=== PATIENT | male | born 1995 | race Caucasian/White ===

== ENCOUNTER 2023-12-26 23:27 | Observation (INO) ==
[2023-12-27 01:06] LABS: Albumin Globulin Ratio 1.5 (0.9-2); Albumin Level 4.5 gm/dl (3.4-5.0); BUN Creatinine Ratio 11.4 (10-20); Bilirubin,Total 0.6 mg/dl (0.2-1.0); Creatinine Clr Calc Pharmacy 66.8 ml/min; Est GFR (African American) 64.5 ml/min; Est GFR (Non-African American) 55.6 ml/min; Globulin 3.1 gm/dl (2.5-4.0); Potassium 4.1 mmol/L (3.5-5.1); Total Protein 7.6 gm/dl (6.0-8.3)
[2023-12-27 01:07] LABS: Basophils # (auto) 0.04 K/uL (0.00-0.20); Basophils % (auto) 0.2 %; Eosinophils # (auto) 0.01 K/uL (0.00-0.50); Eosinophils % (auto) 0.1 %; Hematocrit (blood only) 42.2 % (42.0-52.0); Hemoglobin 13.7 g/dl (14.0-18.0); Immature Granulocytes # (auto) 0.16 K/uL (0.01-0.20); Immature Granulocytes % (auto) 0.8 %; Lymphocytes # (auto) 1.51 K/uL (1.20-3.40); Mean Corpuscular Hemoglobin 26.9 pg (25.0-34.0); Mean Corpuscular Hgb Conc 32.5 g/dL (32.0-36.0); Mean Corpuscular Volume 82.9 fL (80.0-100.0); Mean Platelet Volume 10.9 fL (9.4-12.4); Monocytes # (auto) 1.77 K/uL (0.11-0.59); Monocytes % (auto) 9.4 %; Neutrophils # (auto) 15.41 K/uL (1.40-6.50); Neutrophils % (auto) 81.5 %; Platelet Count 354 K/uL (130-400); RDW Coefficient of Variation 13.6 % (11.5-14.5); RDW Standard Deviation 41.2 fL (36.4-46.3); Red Blood Count 5.09 M/uL (4.70-6.10)
[2023-12-27] MEDS: OPTIRAY 320 100ml IV ONE (01:47)
--- NOTE | 2023-12-27 03:14 | CT Scan Report ---
Exam(s): CT ABDOMEN + PELVIS With Contrast IV Amt: 94 ml opti 320 EXAM: CT Abdomen and Pelvis With Intravenous Contrast CLINICAL HISTORY: Reason for exam: Larisa-rectal infection w/ packing. 18k wbc. TECHNIQUE: Axial computed tomography images of the abdomen and pelvis with intravenous contrast. CTDI is 17.76 mGy and DLP is 892 mGy-cm. Automated exposure control was utilized for the study. A dose lowering technique was utilized adhering to the principles of ALARA. CONTRAST: Patient received 94 ml opti 320 of IV contrast COMPARISON: No relevant prior studies available. FINDINGS: Lung bases: Unremarkable. No mass. No consolidation. ABDOMEN: Liver: Normal size. 2.3 x 2.2 cm intermediate density hypodense lesion left lobe of liver. 6 mm hypodense lesion right lobe of liver and 7 mm hypodense lesion in the left lobe of liver, too small to characterize. Gallbladder and bile ducts: Unremarkable. No calcified stones. No ductal dilation. Pancreas: Unremarkable. No mass. No ductal dilation. Spleen: Unremarkable. No splenomegaly. Adrenals: Unremarkable. No mass. Kidneys and ureters: No obstructive uropathy. No obstructing renal or ureteral calculi. No hydronephrosis or hydroureter. Stomach and bowel: No obstruction or ileus. Moderate stool throughout the colon. No evidence for diverticulitis. PELVIS: Appendix: No findings to suggest acute appendicitis. Bladder: Partially contracted. No mass. Reproductive: Unremarkable as visualized. ABDOMEN and PELVIS: Intraperitoneal space: No free air. No free fluid. Bones/joints: No acute fracture. Soft tissues: Large subcutaneous peripherally enhancing fluid collection in the medial aspect of the lower right pelvis and buttock overlying the sacrum 7 cm superior inferior by 3.4 cm anterior-posterior by 4.9 cm medial lateral with mild surrounding infiltration. Small hyperdensity at the posterior aspect of the collection extends to the gluteal fold consistent with packing. No interstitial gas. No involvement of the underlying paraspinal musculature. Vasculature: Unremarkable. No abdominal aortic aneurysm. Lymph nodes: Unremarkable. No enlarged lymph nodes. IMPRESSION: Large subcutaneous peripherally enhancing collection in the right lower back and buttock consistent with an abscess. Hyperdensity lung margin of the collection the gluteal fold consistent with known packing. No involvement of the underlying musculature. Indeterminant hypodense lesion left lobe of liver 2.3 x 2.2 cm. Additional subcentimeter hypodense lesions too small to characterize. Recommend correlation with ultrasound when clinically appropriate. Electronically signed by: Romeo Lucas M.D. 12/27/23 03:13 AM
[2023-12-27] MEDS: CLINDAMYCIN/D5W 600 MG/50 ML BAG IV ONE (05:23)
--- NOTE | 2023-12-27 06:41 | Emergency Department Note ---
History of Present Illness General Chief complaint: Pilonidal Cyst Stated complaint: PILONIDAL CYST W/ABSCESS Time Seen by Provider: 12/27/23 02:59 History of Present Illness Maximum Pain Intensity: 8 This is a 28-year-old male presenting to the emergency department for evaluation of cyst on his tailbone for the past 3 days. Patient is currently under the care of of the corrections department of [facility]. The patient did have the cyst incised and drained 2 days ago and he was started on Bactrim. Despite the medication his symptoms are not improving. He continues to have drainage and discharge but worsening pain. He rates the discomfort an 8/10. He does not have any known history of inflammatory bowel disease. No fevers or chills. He has been eating and drinking as normal. Past Med/Surg History Medical History (Updated 12/27/23 @ 06:57 by Chilango Neal PA-C) No chronic diseases present Surgical History (Updated 12/27/23 @ 06:48 by Chilango Neal PA-C) No significant past surgical history Social History Smoking Status: Never smoker Preferred Language: Kazakh Feels Safe at Home: Yes Review of Systems A total of 10 systems reviewed and were otherwise negative Physical Exam Vital Signs Vital Signs - 24 hr 12/26/23 23:54 12/27/23 01:52 12/27/23 02:30 Temperature 36.7 C Temperature Source Oral Pulse Rate 92 H Pulse Rate [Apical] 85 83 Respiratory Rate 16 20 20 Respiratory Effort / Characteristics Non-Labored Non-Labored Respiratory Depth Normal Normal Respiratory Pattern Regular Regular Blood Pressure 115/79 Blood Pressure [Left Arm] 114/56 L 102/48 L Blood Pressure Mean 91 Blood Pressure Mean [Left Arm] 75 66 Pulse Oximetry 98 97 99 Oxygen Delivery Method Room Air Room Air Room Air Sepsis Recent Fever Within 48 Hours Yes Sepsis New/Unexplained Change in Mental Status No Sepsis Action Taken by Nursing No Action Required 12/27/23 04:00 12/27/23 05:26 Temperature Temperature Source Pulse Rate Pulse Rate [Apical] 89 87 Respiratory Rate 20 18 Respiratory Effort / Characteristics Non-Labored Non-Labored Respiratory Depth Normal Normal Respiratory Pattern Regular Regular Blood Pressure Blood Pressure [Left Arm] 103/50 L Blood Pressure Mean Blood Pressure Mean [Left Arm] 67 Pulse Oximetry 96 96 Oxygen Delivery Method Room Air Room Air Sepsis Recent Fever Within 48 Hours Sepsis New/Unexplained Change in Mental Status Sepsis Action Taken by Nursing VITALS: Vitals are noted on the nurse's note and reviewed by myself. Vital signs stable. GENERAL: Well-developed, well-nourished, male, who is in no acute distress and resting comfortably. Patient is cooperative with the examination. HEAD: Normocephalic atraumatic. HEART: Regular rate and rhythm without murmurs gallops or rubs. LUNGS: Clear to auscultation bilaterally without wheezes, rales or rhonchi. No retractions or accessory muscle use. ABDOMEN: Positive normal bowel sounds x 4. Soft, nontender, without masses or organomegaly. No guarding or rebound tenderness. MUSCULOSKELETAL: No muscle atrophy, erythema, or edema noted. Full range of motion in all extremities. SKIN: The skin along the gluteal cleft of the patient's right side is consistent with abscess. There is packing material in place. This area is quite indurated and tender on palpation. External dimension of tenderness is roughly 8 x 6 cm. Course Administered Medications Discontinued Medications Clindamycin Phosphate (Cleocin/D5w) 600 mg in 50 mls @ 100 mls/hr IV NOW ONE Stop: 12/27/23 04:54 Last Infusion: 12/27/23 05:54 Dose: Infused Documented By: Admin: 12/27/23 05:23 Dose: 100 mls/hr Documented By: JAVED Ioversol (Optiray 320 100ml) 94 ml IV ONCE ONE Stop: 12/27/23 01:47 Last Admin: 12/27/23 01:47 Dose: 94 ml Documented By: YOBANI Medical Decision Making Differential Diagnosis Differential diagnosis includes: Etiologies such as cellulitis, abscess, osteomyelitis, MRSA infection, DVT, necrotizing fasciitis, dermatitis, drug eruption, as well as others were entertained Laboratory Data 12/27/23 00:35 12/27/23 00:35 Lab Results 12/27/23 Range/Units 00:35 WBC 18.90 H (4.8-10.8) K/ul RBC 5.09 (4.70-6.10) M/uL Hgb 13.7 L (14.0-18.0) g/dl Hct 42.2 (42.0-52.0) % MCV 82.9 (80.0-100.0) fL MCH 26.9 (25.0-34.0) pg MCHC 32.5 (32.0-36.0) g/dL RDW Std Deviation 41.2 (36.4-46.3) fL RDW Coeff of Myles 13.6 (11.5-14.5) % Plt Count 354 (130-400) K/uL MPV 10.9 (9.4-12.4) fL Immature Gran % (Auto) 0.8 % Neut % (Auto) 81.5 % Lymph % (Auto) 8.0 % [place] % (Auto) 9.4 % Eos % (Auto) 0.1 % Baso % (Auto) 0.2 % Neut # (Auto) 15.41 H (1.40-6.50) K/uL Lymph # (Auto) 1.51 (1.20-3.40) K/uL [place] # (Auto) 1.77 H (0.11-0.59) K/uL Eos # (Auto) 0.01 (0.00-0.50) K/uL Baso # (Auto) 0.04 (0.00-0.20) K/uL Immature Gran # (Auto) 0.16 (0.01-0.20) K/uL Sodium 134 L (136-145) mmol/L Potassium 4.1 (3.5-5.1) mmol/L Chloride 98 (98-107) mmol/L Carbon Dioxide 25 (21-32) mmol/L Anion Gap 11 (3-11) BUN 19 (6-23) mg/dl Creatinine 1.66 H (0.6-1.4) mg/dl Est Cr Clr Drug Dosing 66.8 ml/min Est GFR ( Amer) 64.5 ml/min Est GFR (Non-Af Amer) 55.6 ml/min BUN/Creatinine Ratio 11.4 (10-20) Glucose 111 H (70-99(Fasting)) mg/dl Calcium 9.0 (8.6-10.3) mg/dl Total Bilirubin 0.6 (0.2-1.0) mg/dl AST 12 L (13-39) U/L ALT 17 (7-52) U/L Alkaline Phosphatase 68 (34-104) U/L Total Protein 7.6 (6.0-8.3) gm/dl Albumin 4.5 (3.4-5.0) gm/dl Globulin 3.1 (2.5-4.0) gm/dl Albumin/Globulin Ratio 1.5 (0.9-2) Imaging Data Radiologist's Impression: Abdomen/Pelvis CT 12/27/23 01:31 Exam(s): CT ABDOMEN + PELVIS With Contrast IV Amt: 94 ml opti 320 EXAM: CT Abdomen and Pelvis With Intravenous Contrast CLINICAL HISTORY: Reason for exam: Larisa-rectal infection w/ packing. 18k wbc. TECHNIQUE: Axial computed tomography images of the abdomen and pelvis with intravenous contrast. CTDI is 17.76 mGy and DLP is 892 mGy-cm. Automated exposure control was utilized for the study. A dose lowering technique was utilized adhering to the principles of ALARA. CONTRAST: Patient received 94 ml opti 320 of IV contrast COMPARISON: No relevant prior studies available. FINDINGS: Lung bases: Unremarkable. No mass. No consolidation. ABDOMEN: Liver: Normal size. 2.3 x 2.2 cm intermediate density hypodense lesion left lobe of liver. 6 mm hypodense lesion right lobe of liver and 7 mm hypodense lesion in the left lobe of liver, too small to characterize. Gallbladder and bile ducts: Unremarkable. No calcified stones. No ductal dilation. Pancreas: Unremarkable. No mass. No ductal dilation. Spleen: Unremarkable. No splenomegaly. Adrenals: Unremarkable. No mass. Kidneys and ureters: No obstructive uropathy. No obstructing renal or ureteral calculi. No hydronephrosis or hydroureter. Stomach and bowel: No obstruction or ileus. Moderate stool throughout the colon. No evidence for diverticulitis. PELVIS: Appendix: No findings to suggest acute appendicitis. Bladder: Partially contracted. No mass. Reproductive: Unremarkable as visualized. ABDOMEN and PELVIS: Intraperitoneal space: No free air. No free fluid. Bones/joints: No acute fracture. Soft tissues: Large subcutaneous peripherally enhancing fluid collection in the medial aspect of the lower right pelvis and buttock overlying the sacrum 7 cm superior inferior by 3.4 cm anterior-posterior by 4.9 cm medial lateral with mild surrounding infiltration. Small hyperdensity at the posterior aspect of the collection extends to the gluteal fold consistent with packing. No interstitial gas. No involvement of the underlying paraspinal musculature. Vasculature: Unremarkable. No abdominal aortic aneurysm. Lymph nodes: Unremarkable. No enlarged lymph nodes. IMPRESSION: Large subcutaneous peripherally enhancing collection in the right lower back and buttock consistent with an abscess. Hyperdensity lung margin of the collection the gluteal fold consistent with known packing. No involvement of the underlying musculature. Indeterminant hypodense lesion left lobe of liver 2.3 x 2.2 cm. Additional subcentimeter hypodense lesions too small to characterize. Recommend correlation with ultrasound when clinically appropriate. Electronically signed by: Romeo Lucas M.D. 12/27/23 03:13 AM MDM Narrative Physical exam and history were performed. Nursing notes, EMR, and Medication List were personally reviewed. No social concerns were identified as barriers to patients care. Patient appears to have pilonidal abscess bringing him to the ER. The area is quite large and warm. IV access was established and labs were obtained. Patient's blood work is as above and was reviewed. Patient does have an elevated white count of 18.9 with elevated neutrophils. He does not have significant anemia or gross electrolyte imbalance. Transaminases not diagnostic. Glucose is 111. Due to the elevated white count CT scan of the abdomen and pelvis was performed. This was reviewed by myself and radiology and does show a large collection consistent with pilonidal abscess. The patient is reportedly allergic to penicillins, and he was given IV clindamycin here in the ER. Case was discussed with the on-call surgical team who agreed to evaluate the patient here in the ER. Patient remained in stable condition until the time of shift change. Case was discussed with my colleague, Gertrudis Ansari PA-C, who will assume care at this time. Please see Ms. Muniz's dictation pending surgical recommendations. The chart was completed utilizing [employer] Speech Voice Recognition Software. Grammatical errors, random word insertions, pronoun errors, and incomplete sentences are an occasional consequence of this system due to software limitations, ambient noise, and hardware issues. Any formal questions or concerns about the content, text, or information contained within the body of this dictation should be directly addressed to the provider for clarification. . Impression & Plan Pilonidal abscess Discharge Plan Visit Data Chief Complaint: Pilonidal Cyst Stated Complaint: PILONIDAL CYST W/ABSCESS ED Provider: Andie Farley ED Midlevel Provider: Gertrudis Muniz Discharge Problem: Pilonidal abscess Forms Stand Alone Forms: My [facility] Referrals Referrals: Carlos DAVILA [Primary Care Provider] -
--- NOTE | 2023-12-27 08:03 | History & Physical Report ---
Date of Service December 27, 2023 Assessment & Plan (1) Pilonidal abscess: Plan: This is a 28yM prisoner with no significant PMH who presents to the [facility] ED on 12/27/23 with complaints of pain around his tailbone area. This was diagnosed as a pilonidal abscess at the [facility] ER 2 days ago and was incised/drained and packed with nu-gauze and sent out on po abx. Unfortunately the patient continues to feel unwell, generalized malaise, subjective fevers/chills, nausea/vomiting, and pain at the area of concern. Due to this he presented to our ER for further evaluation. A CT a/p was obtained that revealed large subcutaneous peripherally enhancing collection in the right lower back and buttock consistent with an abscess, measuring 7cm x 3.4cm x 4.9cm. WBC noted to be 18.9 Patient is afebrile with stable vitals. On examination the patient has an area of erythema over the tailbone that is fluctuant and tender to palpation. There is small knick centrally to this about 1cm with packing in place, some purulence noted on packing material. Due to findings on CT scan showing a moderate amount of residual abscess with WBC of 18.9 we would deem the patient appropriate to take to the OR for a more thorough incision and drainage of the area. Keep NPO with IVF and IV abx (clindamycin given). Possible home s/p procedure. Dr. bertrand will obtain consent. History of Present Illness Primary Care Provider: [facility] This is a 28yM prisoner with no significant PMH who presents to the [facility] ED on 12/27/23 with complaints of pain around his tailbone area. Of note the patient developed pain in this region about 4 days ago. It started out as a quarter and began to increase in size and developed worsening pain. He ended up going to an ER in [facility] about 2 days and was diagnosed with a pilonidal abscess which was drained at the bedside. This was packed and he was told to keep packing in for 4 days. He was discharged on bactrim. Unfortunately the patient did not have much relief in his symptoms. He continues to have pain in the area, associated with generalized feelings of unwell, subjective fevers, chills, anorexia, and some nausea/vomiting. Because of this he presented to our ER for further evaluation. A CT a/p was obtained that revealed large subcutaneous peripherally enhancing collection in the right lower back and buttock consistent with an abscess, measuring 7cm x 3.4cm x 4.9cm. Patient never has this happen before. Allergies Allergy/AdvReac Type Severity Reaction Status Date / Time amoxicillin Allergy Unknown Unknown Verified 12/27/23 09:01 Home Medications Medication Instructions Recorded Confirmed Type sulfamethoxazole 800 1 tab PO BID 12/27/23 12/27/23 History mg-trimethoprim 160 mg tablet (Bactrim DS) Past Med/Surg History Medical History No chronic diseases present Surgical History No significant past surgical history Social History Smoking Status: Never smoker Preferred Language: Sami Feels Safe at Home: Yes Review of Systems Constitutional: + fever (subjective), + chills, + malais e and + anorexia Respiratory: no dyspnea Cardiovascular: no chest pain Gastrointestinal: + nausea and + vomiting; no abdominal pa in Integumentary: pain along tailbone region Physical Exam Physical Exam: awake/alert, no distress Constitutional: well developed and well nourished; no acute distress Respiratory: normal respiratory effort Skin: patient has an area of erythema, fluctuance and tenderness the size of a baseball. There is small knick centrally to this about 1cm with packing in place, some purulence noted on packing material Results & Data Results & Data Vital Signs (Past 12 Hours) Vital Signs Temp Pulse Pulse Resp BP BP Pulse Ox 12/27/23 07:26 59 L 16 100/54 L 98 12/27/23 05:26 87 18 103/50 L 96 12/27/23 04:00 89 20 96 12/27/23 02:30 83 20 102/48 L 99 12/27/23 01:52 85 20 114/56 L 97 12/26/23 23:54 98.1 F 92 H 16 115/79 98 O2 Del Method 12/27/23 07:26 Room Air 12/27/23 05:26 Room Air 05/09/24 04:00 Room Air 12/27/23 02:30 Room Air 12/27/23 01:52 Room Air 12/26/23 23:54 Room Air Diagnostic Findings Exam(s): CT ABDOMEN + PELVIS With Contrast IV Amt: 94 ml opti 320 EXAM: CT Abdomen and Pelvis With Intravenous Contrast CLINICAL HISTORY: Reason for exam: Larisa-rectal infection w/ packing. 18k wbc. TECHNIQUE: Axial computed tomography images of the abdomen and pelvis with intravenous contrast. CTDI is 17.76 mGy and DLP is 892 mGy-cm. Automated exposure control was utilized for the study. A dose lowering technique was utilized adhering to the principles of ALARA. CONTRAST: Patient received 94 ml opti 320 of IV contrast COMPARISON: No relevant prior studies available. FINDINGS: Lung bases: Unremarkable. No mass. No consolidation. ABDOMEN: Liver: Normal size. 2.3 x 2.2 cm intermediate density hypodense lesion left lobe of liver. 6 mm hypodense lesion right lobe of liver and 7 mm hypodense lesion in the left lobe of liver, too small to characterize. Gallbladder and bile ducts: Unremarkable. No calcified stones. No ductal dilation. Pancreas: Unremarkable. No mass. No ductal dilation. Spleen: Unremarkable. No splenomegaly. Adrenals: Unremarkable. No mass. Kidneys and ureters: No obstructive uropathy. No obstructing renal or ureteral calculi. No hydronephrosis or hydroureter. Stomach and bowel: No obstruction or ileus. Moderate stool throughout the colon. No evidence for diverticulitis. PELVIS: Appendix: No findings to suggest acute appendicitis. Bladder: Partially contracted. No mass. Reproductive: Unremarkable as visualized. ABDOMEN and PELVIS: Intraperitoneal space: No free air. No free fluid. Bones/joints: No acute fracture. Soft tissues: Large subcutaneous peripherally enhancing fluid collection in the medial aspect of the lower right pelvis and buttock overlying the sacrum 7 cm superior inferior by 3.4 cm anterior-posterior by 4.9 cm medial lateral with mild surrounding infiltration. Small hyperdensity at the posterior aspect of the collection extends to the gluteal fold consistent with packing. No interstitial gas. No involvement of the underlying paraspinal musculature. Vasculature: Unremarkable. No abdominal aortic aneurysm. Lymph nodes: Unremarkable. No enlarged lymph nodes. IMPRESSION: Electronically signed by: Romeo Lucas M.D. 12/27/23 03:13 AM Supervising Physician Co-Signing Physician Notes pnt S&E, labs and imaging reviewed, agree with above. Incarcerated male with pilonidal abscess, first time. Small I&D performed at [facility], still large abscess. afvss, pilonidal abscess w/ iodoform in small I&D site. 6cm fluctuance, erythema, induration. wbc 18. CT personally reviewed and interpreted, agree with assessment of pilonidal abscess, 5cm or more. plan for incision and drainage pilonidal abscess risks discussed to include bleeding, infection, recurrence, prolonged wound healing, need for future or more extensive surgery potential discharge today or tomorrow outpnt abx local wound care preventative measures for pilonidal discussed PG Care Time/CCT Total # of Minutes Spent Total Time Spent with Patient: Total time spent is greater than 50% in coordination of care (as documented) at patient's floor/unit and/or counseling patient: Coding Level of Care Code 31345 INT INP/OBS CARE MIN Diagnoses Pilonidal abscess L05.01
--- NOTE | 2023-12-27 08:17 | Emergency Department Note ---
ED Visit Note The patient was signed out to me by Chilango Neal PA-C pending surgery evaluation. I did speak with Yue Peterson PA-C with general surgery. She did evaluate the patient and the patient will be taken to the OR for I&D of the pilonidal abscess. Please see surgery dictation regarding ongoing management and final disposition of this patient.
--- NOTE | 2023-12-27 08:38 | Anesthesiology Consultation ---
Date of Service December 27, 2023 Assessment & Plan Chart Review Chart Review: data entry technician initiated History Surgery Operation Date: 12/27/23 08:20 Proposed Procedures p Incision and Drainage of Pilonidal Cyst - Angel David DO, FACS Height/Weight Height: 5 ft 9 in Weight: 74 kg Past Medical History Medical History No chronic diseases present Past Surgical History Surgical History No significant past surgical history Social History Smoking Status: Never smoker Physical Exam Vital Signs Last Vital Signs Temp 98.1 F 12/26/23 23:54 Pulse 59 L 12/27/23 07:26 Resp 16 12/27/23 07:26 BP 100/54 L 12/27/23 07:26 Pulse Ox 98 12/27/23 07:26 O2 Del Method Room Air 12/27/23 07:26 Testing Laboratory Results 12/27/23 00:35 12/27/23 00:35
[2023-12-27] MEDS ORDERED: DEXAMETHASONE SOD INJ 4 MG/ML VIAL ONE (09:29)
[2023-12-27] MEDS ORDERED: fentaNYL citrate PF 100 MCG/2 ML VIAL ONE ×2 (09:29→11:01)
[2023-12-27] MEDS ORDERED: LIDOCAINE 2% 2 ML VIAL/AMP(20MG/ML) INFIL ONE (09:29)
[2023-12-27] MEDS ORDERED: ONDANSETRON INJ 2 MG/ML 2 ML VIAL ONE (09:29)
[2023-12-27] MEDS ORDERED: PROPOFOL IV EMULSION 10 MG/ML 20 ML VIAL IV ONE (09:29)
[2023-12-27] MEDS ORDERED: MIDAZOLAM HCL 1 MG/ML 2ML VIAL ONE (09:29)
[2023-12-27] MEDS ORDERED: ONDANSETRON INJ 2 MG/ML 2 ML VIAL IV PRN ×2 (09:36→12:21)
[2023-12-27] MEDS ORDERED: fentaNYL citrate PF 100 MCG/2 ML VIAL IV PRN (09:36)
[2023-12-27] MEDS ORDERED: ATROPINE SULFATE 0.1 MG/ML 10ML SYR IV PRN (09:36)
[2023-12-27] MEDS ORDERED: ePHEDrine sulfate 50 MG/ML AMP IV PRN (09:36)
[2023-12-27] MEDS ORDERED: SUGAMMADEX SODIUM 200 MG/2 ML VIAL IV ONE (11:02)
[2023-12-27] MEDS: BUPIVACAINE LIPOSOME 1.3% 266 MG/20 ML VIAL ONE (11:06)
[2023-12-27] MEDS: BUPIVACAINE/EPINEPHRINE 0.5% MPF 1:200,000 30 ML VIAL ONE (11:14)
--- NOTE | 2023-12-27 11:19 | Operative Report ---
PG Post Operative Report Pre & Post Diagnosis Operation Date: 12/27/23 08:20 Pre-Op Diagnosis: PILONIDAL CYST W/ABSCESS Post-Op Diagnosis: PILONIDAL CYST W/ABSCESS I identified the patient and participated in the time-out.: Yes Procedure Operation Date: 12/27/23 08:20 Actual Procedures p Incision and Drainage of Pilonidal Cyst(Not Applicable) - Angel David DO, FACS Surgeon Angel David DO, [facility] Estimated Blood Loss 20 Findings Consistent with Post-Op Diagnosis Incision and drainage performed, culture sent, 50 cc of pus drained, Exparel injected, good hemostasis, wound packed. Specimens Pilonidal abscess fluid for cultures Bilateral abscess for Anesthesia Type General Complications none Disposition Accompanied Patient To Recovery: No Disposition: Recovery Room Indications 28-year-old incarcerated male presented with signs symptoms of pilonidal cyst with abscess. Previous I&D attempt with some drainage but still significant amount of fluid. Plan for incision and drainage of pilonidal abscess in the operating room. The risks of the procedure were discussed, all questions were answered, and the patient agreed to proceed with surgery as planned. Description of Procedure The patient was properly identified, consented, and taken to the operating room where he was placed in the supine position. General endotracheal anesthesia was induced. SCDs and a safety belt were placed. Preoperative antibiotics were administered. Patient was placed in the prone position. The patient's buttock and lower back was prepped and draped in the standard sterile fashion. Surgical timeout was performed and all parties were in agreement that this was the correct patient and procedure to be performed and we continued as planned. Local anesthetic was injected along the skin incision. A vertically oriented elliptical incision was made overlying the abscess and prior I&D site and deepened down through the subcutaneous tissue with electrocautery. Approximately 50 cc of pus was drained. This was sent for culture. The roof of the pilonidal cyst abscess was excised and sent for culture. All loculations were broken up. The wound was irrigated and hemostasis was confirmed. Exparel was injected. The wound was packed with 2 inch Kerlix roll. Sterile dressing of 4 x 4's and ABD were placed. Disposable knit underwear were placed. The patient was extubated in the operating room and taken to the PACU where he recovered without apparent incident. All sponge, instrument and needle counts were correct at the conclusion of the procedure. The patient tolerated the procedure well. The physicians contract assistant was present and scrubbed for the entire the case. She was critical in positioning the patient, prepping and draping, retraction and exposure, drainage of the abscess, and placement of the dressings. I attest to the content of the Intraoperative Record and any orders documented therein. Any exceptions are noted below.
[2023-12-27] MEDS ORDERED: ROCURONIUM BROMIDE 10 MG/ML 5 ML VIAL IV ONE (11:28)
[2023-12-27] MEDS: HYDROmorphone INJ 2 MG/ML SYR/VIAL IV PRN (11:40)
[2023-12-27] MEDS: LACTATED RINGER'S 1,000 ML IV SCH (12:20)
[2023-12-27] MEDS ORDERED: oxyCODONE HCL IR 5 MG TAB (IMMEDIATE RELEASE) PO PRN (12:21)
[2023-12-27] MEDS ORDERED: MoRPHine SULFATE 4 MG/ML 1 ML CARP\\VIAL IV PRN (12:21)
[2023-12-27] MEDS ORDERED: ACETAMINOPHEN 1,000 MG/100 ML VIAL IV PRN (12:21)
[2023-12-27] MEDS ORDERED: MoRPHine SULFATE 2 MG/ML CARP IV PRN (12:21)
--- NOTE | 2023-12-27 12:37 | Anesthesiology Progress Note ---
Date of Service December 27, 2023 Anesthesia Post Procedure Vital Signs Vital Signs: Temp Pulse Pulse Pulse Resp BP BP 12/27/23 12:24 98.8 F 85 14 101/66 12/27/23 12:00 98.8 F 89 12 118/68 12/27/23 11:50 95 H 20 118/75 12/27/23 11:40 98 H 15 118/64 12/27/23 11:31 97.5 F L 95 H 15 108/67 12/27/23 09:02 98.4 F 93 H 18 104/60 12/27/23 09:00 61 16 107/71 12/27/23 07:26 59 L 16 100/54 L 12/27/23 05:26 87 18 103/50 L 12/27/23 04:00 89 20 12/27/23 02:30 83 20 102/48 L 12/27/23 01:52 85 20 114/56 L 12/26/23 23:54 98.1 F 92 H 16 115/79 Pulse Ox O2 Del Method O2 Flow Rate 12/27/23 12:24 96 Room Air 12/27/23 12:00 97 Room Air 12/27/23 11:50 95 Room Air 12/27/23 11:40 100 Oxymask 10 12/27/23 11:31 99 Oxymask 10 12/27/23 09:02 96 Room Air 12/27/23 09:00 99 Room Air 12/27/23 07:26 98 Room Air 12/27/23 05:26 96 Room Air 12/27/23 04:00 96 Room Air 12/27/23 02:30 99 Room Air 12/27/23 01:52 97 Room Air 12/26/23 23:54 98 Room Air Pain Intensity Other: Pain Intensity: 8 Sacrum: Pain Intensity: 4 Transfer of Care Handoff Completed per policy Notes Mental Status: alert / awake / arousable and participated in evaluation Patient Amnestic to Procedure: Yes Nausea / Vomiting: adequately controlled Pain: adequately controlled Airway Patency, RR, SpO2: stable & adequate BP & HR: stable & adequate Hydration State: stable & adequate Anesthetic Complications: no major complications apparent and Pt Satisfied with anesthetic care
[2023-12-27] MEDS: ceFAZolin 2000MG 2,000 MG/15 ML SYR IV SCH (13:24)
[2023-12-27] MEDS: metroNIDAZOLE 500 MG/100 ML BAG IV SCH (13:24)
[2023-12-28 06:49] LABS: Basophils # (auto) 0.01 K/uL (0.00-0.20); Basophils % (auto) 0.1 %; Hematocrit (blood only) 35.1 % (42.0-52.0); Hemoglobin 11.6 g/dl (14.0-18.0); Immature Granulocytes # (auto) 0.12 K/uL (0.01-0.20); Immature Granulocytes % (auto) 0.8 %; Lymphocytes # (auto) 0.96 K/uL (1.20-3.40); Mean Corpuscular Hemoglobin 26.9 pg (25.0-34.0); Mean Corpuscular Volume 81.4 fL (80.0-100.0); Monocytes # (auto) 1.03 K/uL (0.11-0.59); Monocytes % (auto) 6.5 %; Neutrophils # (auto) 13.84 K/uL (1.40-6.50); Neutrophils % (auto) 86.6 %; Platelet Count 363 K/uL (130-400); RDW Coefficient of Variation 13.5 % (11.5-14.5); RDW Standard Deviation 40.2 fL (36.4-46.3); Red Blood Count 4.31 M/uL (4.70-6.10); White Blood Count 15.96 K/ul (4.8-10.8)
[2023-12-28 07:17] LABS: BUN Creatinine Ratio 19.4 (10-20); Calcium 8.6 mg/dl (8.6-10.3); Creatinine Clr Calc Pharmacy 113.2 ml/min; Est GFR (Non-African American) 105.2 ml/min; Potassium 4.2 mmol/L (3.5-5.1)
[2023-12-28] MEDS: oxyCODONE HCL IR 5 MG TAB (IMMEDIATE RELEASE) PO PRN (08:30)
--- NOTE | 2023-12-28 10:53 | Surgery Progress Note ---
Date of Service December 28, 2023 Assessment & Plan (1) Pilonidal abscess: Plan: POD 1 Incision and Drainage of Pilonidal Cyst Doing well , pain controlled Kerlix packing removed and replaced with new nss soaked kerlix, covered with gauze, abd and tape Patient to do daily dressing changes To take 10 days of Augmentin at facility Follow up with Dr. David in two weeks Admission and Anticipated Discharge Date Admission Date: December 27, 2023 Supervising Physician Co-Signing Physician Notes PNT S&E, agree w/ above. POD#1 I&D pilonidal abscess. dressing changed, wound healthy. D/C to home, local wound care, f/u as needed Subjective pain tolerable Review of Systems Constitutional: no fever and no chills Respiratory: no dyspnea Cardiovascular: no chest pain Gastrointestinal: no abdominal pain, no nausea and no vomiting Integumentary: + wounds (sacral post operation) Physical Exam Physical Exam: alert oriented Constitutional: cooperative and comfortable; no acute distress Respiratory: normal respiratory effort and able to speak in complete sentences; no respiratory distress Cardiovascular: Rate/Rhythm: regular rate Gastrointestinal (Abdomen): post operative pilonidal abscess I+D Psychiatric: A+Ox3, euthymic affect Results & Data Vital Signs (Past 12 Hours) Vital Signs Temp Pulse Resp BP Pulse Ox O2 Del Method 12/28/23 08:21 97.9 F 83 18 100/61 97 Room Air 12/28/23 00:54 78 18 112/68 98 Room Air PG Care Time/CCT Total # of Minutes Spent Total Time Spent with Patient: Total time spent is greater than 50% in coordination of care (as documented) at patient's floor/unit and/or counseling patient: Coding Level of Care Code 10508 Post Operative Follow-Up Diagnoses Pilonidal abscess L05.01
--- NOTE | 2024-01-01 08:17 | Discharge Summary ---
Date of Service December 28, 2023 Admission HPI Per Admitting Provider This is a 28yM prisoner with no significant PMH who presents to the [facility] ED on 12/27/23 with complaints of pain around his tailbone area. Of note the patient developed pain in this region about 4 days ago. It started out as a quarter and began to increase in size and developed worsening pain. He ended up going to an ER in [facility] about 2 days and was diagnosed with a pilonidal abscess which was drained at the bedside. This was packed and he was told to keep packing in for 4 days. He was discharged on bactrim. Unfortunately the patient did not have much relief in his symptoms. He continues to have pain in the area, associated with generalized feelings of unwell, subjective fevers, chills, anorexia, and some nausea/vomiting. Because of this he presented to our ER for further evaluation. A CT a/p was obtained that revealed large subcutaneous peripherally enhancing collection in the right lower back and buttock consistent with an abscess, measuring 7cm x 3.4cm x 4.9cm. Patient never has this happen before. Principal Diagnosis pilonidal abscess Discharge Exam awake/alert, no distress Respiratory normal respiratory effort Skin pilonidal wound looks well, packing changed Discharge Data Allergies Allergy/AdvReac Type Severity Reaction Status Date / Time amoxicillin Allergy Unknown Unknown Verified 12/27/23 09:01 Consultations 12/27/23 06:45 Consult General Surgery Stat Procedures Performed Operation Date: 12/27/23 08:20 Actual Procedures p Incision and Drainage of Pilonidal Cyst(Not Applicable) - Angel David DO, FACS Ordered Studies 12/27/23 01:31 CT abd pelvis IV con only Stat Hospital Course (1) Pilonidal abscess: This is a 28yM with no significant PMH who presented to the [facility] ED on 12/27/23 with pain over his tailbone region. He had a recent I&D of a pilonidal abscess a couple days ago. Unfortunately despite this and being on a course of po bactrim his symptoms continued. A CT a/p was performed that revealed findings concerning for residual fluid collection measuring ~[id number]. WBC 18. Area of concern reddened, fluctuant, and tender with small knick in skin with nu-gauze packing in place. The patient was kept NPO with IVF and started on IV abx. He was taken to the OR with Dr. David and underwent an incision and drainage of pilonidal abscess. The patient tolerated the procedure well, see op note for full details. He was admitted to the hospital for overnight observation. He was given a regular diet, pain controlled with prn medications, and remained on IV abx. On POD#1 the packing was changed at the bedside without issues. Post op wound looked well. Patient feeling improvement in symptoms. he was discharged back to his correctional facility with instructions to change packing daily. He was instructed to continue on a course of po abx. He was asked to follow up in the office within 2 weeks for a wound check. Total Time Total Time Spent Total Time Spent (In Minutes): 20 Discharge Plan Discharge Items Patient Disposition: Correctional Facility Reason For Visit: PILONIDAL ABSCESS Discharge Diagnosis: incision and drainage of pilonidal abscess Activity: Per Instructions section Lifting: No more than 25 pounds Bathing Comment: may shower Exercise/Sports: Wait until after follow-up appointment Non-emergency contact: Surgeon Call non-emergency contact if: you have any medication questions, your symptoms worsen, your pain is worsening, you have a fever, your temperature is above 101.5, your wound has increased redness, your wound has increased drainage and your wound pain has increased Follow-up/Referrals: Angel David, FISH [place] [Physician] - (Call to schedule follow up in clinic within 2 weeks ) Carlos DAVILA [Primary Care Provider] - Diet: Regular Addtl Attending Provider Instructions: You may take Tylenol #3 if your facility provides it for pain. Otherwise you may take Tylenol or Ibuprofen. Do not exceed the daily limit of acetaminophen within a 24 hour time period. Pack wound once daily with damp NSS soaked gauze, cover with dry 4x4 gauze, ABD pad, and medical tape. Change daily and as needed Complete the full course of antibiotic prescribed to you your Bactrim Pending Studies at Discharge: No Skilled Items Patient informed of condition?: Yes DNR: No Discharge Level of Care: Other Communicable Disease: No Discharge Prognosis: Stable Lines: None Urinary Catheter: No Medications and DC Order Prescriptions: Discontinued sulfamethoxazole-trimethoprim [Bactrim DS] 800-160 mg Tablet 1 tab PO BID Admission Data Admit Date/Time: 12/27/23 11:24 Attending Provider: Angel David Admit Provider: Angel David Primary Care Provider: Carlos DAVILA Other Interventions: Discharge Summary Assessment (RN) Last Done: 12/28/23 11:38 Coding Level of Care Code 42953 IN/OBS DISCH 30 MIN/LESS Diagnoses Pilonidal abscess L05.01
== END 2023-12-28 15:34 ==
LOC: 3E 23:27 → ED 23:27